=== PATIENT | female | born 1985 | race Caucasian/White ===

== ENCOUNTER 2024-01-04 07:16 | Outpatient (CLI) | payer OTHER, SELFPAY ==
--- NOTE | 2024-01-04 07:32 | US_ITS ---
WS: [id number] ULTRASOUND limited abdomen. HISTORY: UMBILICAL HERNIA COMPARISON: None available. TECHNIQUE: 2-D and color Doppler imaging is submitted. Ultrasound is performed along the superior umbilical region as directed by the patient. There is a so ft tissue mass which is hypoechoic with linear echogenic striations. This mass measures 3.2 x 2.1 x 3 .4 cm and is contiguous with the ventral abdominal wall. Consistent with hernia. US/US abdomen limited [id number] IMPRESSION: Supraumbilical omentum containing hernia.
== END 2024-01-04 07:17 | disposition home or self-care (01) ==
LOC: RAD 07:18
PROVIDERS: PCP Nurse Practitioner Family; Visit Provider Nurse Practitioner Family
DX: K42.9 Umbilical hernia without obstruction or gangrene (principal)
CPT/HCPCS: 76705

== ENCOUNTER 2024-03-01 09:38 | Day surgery (SDC) | payer OTHER, SELFPAY ==
[2024-03-01] VITALS (21 sets, daily range): BP systolic 105–168; BP diastolic 66–91; PULSE 63–88; RESP 12–26; TEMP 36.1–36.6; O2SAT 96–100; BMI 31.5
--- NOTE | 2024-03-01 10:01 | PM.HP ---
Providers/Chief Complaint Primary Care Provider: Lexii Agustin Chief Complaint: K42.0 History of Present Illness Georges Stephens is a 38 year old female Review of Systems General: Reports: 10 or more systems reviewed and unremarkable except in HPI and below Medications/Allergies Home Medications Medication Instructions Recorded Confirmed Last Taken Type fenofibrate 160 mg tablet 160 mg PO DAILY 11/13/23 02/29/24 02/29/24 History atorvastatin 40 mg tablet 40 mg PO DAILY #90 tabs 11/14/23 02/29/24 02/29/24 Rx lisinopril 40 mg tablet 40 mg PO DAILY #90 tabs 11/14/23 02/29/24 02/29/24 Rx buspirone 10 mg tablet 20 mg PO BID 12/03/23 03/01/24 03/01/24 08:30 History hydrochlorothiazide 25 mg tablet 25 mg PO DAILY 12/03/23 02/29/24 02/29/24 History amlodipine 5 mg tablet 5 mg PO BEDTIME #90 tabs 12/18/23 02/29/24 02/28/24 Rx varenicline 1 mg tablet (Chantix 1 mg PO BID 12 weeks #168 tabs 01/13/24 Unknown Rx Continuing Month Box) carvedilol 3.125 mg tablet See Rx Instructions .Route 02/26/24 03/01/24 03/01/24 08:30 Rx .COMPLEX #60 tabs Allergies Allergy/AdvReac Type Severity Reaction Status Date / Time amoxicillin [From Augmentin] Allergy Unknown Verified 01/08/24 11:25 clavulanic acid Allergy Unknown Verified 01/08/24 11:25 [From Augmentin] PFSH Acute PFSH: Social History Smoking and tobacco/nicotine status: current every day tobacco/nicotine user cigarettes Packs smoked per day: 1 Years cigarettes smoked: 25 [ Other cigarette details: Started at age 16] A&P Assessment and plan (1) Incarcerated umbilical hernia: Plan Laparoscopic incarcerated umbilical hernia repair with mesh The risks and benefits of the procedure, including but not limited to, bleeding, infection, mesh infection requiring mesh excision antibiotic therapy and repeat surgery, damage surrounding structures, conversion to an open procedure, scar, numbness, pain, and/or recurrence were explained to the patient. Patient is understanding of the risks and wishes to proceed. Attestations Medical Necessity Statement*: Home Coding Level of Care Code Acute Code for Chg Fwd Diagnoses Incarcerated umbilical hernia K42.0
[2024-03-01] MEDS: vancomycin 1,500 MG/300 ML PIGGYBACK 200 MG IV (10:14)
[2024-03-01] MEDS: sodium chloride 0.9% 1,000 ML 30 ML IV (10:14)
--- NOTE | 2024-03-01 10:21 | P.ANESASSM_ITS ---
Pre-Anesthetic Assessment Height/Weight: Height 1.78 m Weight 99.79 kg Temp Pulse Resp BP Pulse Ox O2 Del Method 97.8 F 85 18 105/68 97 Room Air 03/01/24 10:11 03/01/24 10:11 03/01/24 10:11 03/01/24 10:11 03/01/24 10:11 03/01/24 10:11 Operation Date: 03/01/24 11:15 Proposed Procedures p Laparoscopic Umbilical Hernia Repair with mesh 26975, K42.0(Not Applicable) - Mikey Jackson DO Familial anesthetic complications: None Was Beta Romero taken within 24 hours: N/A Was Clonidine taken within 24 hours: N/A Last intake: Intake Last Liquid Date 02/29/24 Last Liquid Time 23:30 Last Solid Date 02/29/24 Last Solid Time 23:00 Social Tobacco and No alcohol Exam alert, oriented x 3, clear to auscultation bilaterally and regular rate & rhythm Airway Mallampati: Class II Dentition: other (fillings have fallen out) CV/HEM Hypertension Metabolic Diabetes Mellitus and Hyperlipidemia Anesthetic Plan ASA status: 3 Anesthesia: General Risk of > 500 ml blood loss (7ml/kg in children): No Medications/Allergies Home Medications Medication Instructions Recorded Confirmed Last Taken Type fenofibrate 160 mg tablet 160 mg PO DAILY 11/13/23 02/29/24 02/29/24 History atorvastatin 40 mg tablet 40 mg PO DAILY #90 tabs 11/14/23 02/29/24 02/29/24 Rx lisinopril 40 mg tablet 40 mg PO DAILY #90 tabs 11/14/23 02/29/24 02/29/24 Rx buspirone 10 mg tablet 20 mg PO BID 12/03/23 03/01/24 03/01/24 08:30 History hydrochlorothiazide 25 mg tablet 25 mg PO DAILY 12/03/23 02/29/24 02/29/24 History amlodipine 5 mg tablet 5 mg PO BEDTIME #90 tabs 12/18/23 02/29/24 02/28/24 Rx varenicline 1 mg tablet (Chantix 1 mg PO BID 12 weeks #168 tabs 01/13/24 Unknown Rx Continuing Month Box) carvedilol 3.125 mg tablet See Rx Instructions .Route 02/26/24 03/01/24 03/01/24 08:30 Rx .COMPLEX #60 tabs Allergies Allergy/AdvReac Type Severity Reaction Status Date / Time amoxicillin [From Augmentin] Allergy Unknown Verified 01/08/24 11:25 clavulanic acid Allergy Unknown Verified 01/08/24 11:25 [From Augmentin] Current Medications Generic Name Dose Route Start Last Admin Trade Name Freq PRN Reason Stop Dose Admin Sodium Chloride 1,000 mls @ 30 mls/hr 03/01/24 09:45 03/01/24 10:14 Sodium Chloride 0.9% IV 03/02/24 09:44 30 mls/hr .Q24H MARJORIE Administration Vancomycin HCl 1,500 mg in 300 mls @ 200 mls/hr 03/01/24 09:42 03/01/24 10:14 Vancocin IV 03/01/24 11:11 200 mls/hr 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
--- NOTE | 2024-03-01 11:42 | PM.OP ---
Operative Report Date of procedure: March 01, 2024 Pre-op diagnosis: Umbilical hernia Post-op diagnosis: Umbilical hernia Additional ventral hernias x 2 Procedure done: Laparoscopic repair of ventral hernias x 3. 2 separate meshes were used Implants: 11 cm round Ventralight mesh 6 inch round Ventralight mesh Specimens removed/disposition: Hernia sacs Surgeon: Mikey Jackson DO Anesthesia: General and Local Estimated blood loss (mL): 5 Complications: None apparent Brief History: This is a very pleasant 38-year-old female presented my office with an umbilical hernia. Ultrasound showed a 3.2 cm umbilical hernia. The hernia was incarcerated. Laparoscopic repair with mesh was indicated. The risks and benefits explained and documented. Procedure: Patient was wheeled into the operative room and placed on the OR table in a supine position. Abdomen was inspected prepped and draped in usual sterile fashion. Time-out was performed and all present were in agreement. A 15 blade scalp was used to make a 5 millimeter incision left upper quadrant. A Veress needle was placed into the incision and intra-abdominal insufflation was brought to 15 millimeters of mercury. A 12 millimeter trocar was placed into the left lower quadrant. Omentum was adhered to the anterior abdominal wall this was taken down with LigaSure. An umbilical hernia and a ventral hernia superior to this were identified. During the dissection a third hernia was identified inferiorly. All 3 hernias measured less than 1.5 cm in diameter. The inferior hernia was from the other 2 hernias by 8 cm. There was omentum incarcerated into the 2 superior hernias which was taken out bluntly. The energy but device was then used to cut out the hernia sacs. An 11 cm round Ventralight mesh was placed over the inferior hernia. This was then tacked into place in a double crown fashion with a secure strap. A 6 inch ventral light mesh was placed into the abdomen and brought up in between the 2 superior hernias using an the Matthew-Juanpablo. The mesh was then tacked in place in a double crown fashion. The skeleton of the mesh was removed via the left lower quadrant. The hernia sac was then removed from the abdomen via the left lower quadrant. The left lower quadrant port site was closed with an 0 Vicryl suture in a Matthew-Juanpablo in a [id number] fashion. Incisions were closed with 4 O Vicryl in a subcuticular interrupted fashion. Skin glue was applied. A dressing that included cotton balls and a Tegaderm was placed over the umbilicus. Patient tolerated the procedure well.
[2024-03-01] MEDS: fentaNYL 50 mcg/mL INJ 2mL 100 MCG IVP (12:06)
--- NOTE | 2024-03-01 12:10 | PC.NURSE ---
1158- Per TAYLOR Wilson - des to give 100 Fentanyl IVP if pain does not decrease within 5-10 minutes
[2024-03-01] MEDS: fentaNYL 50 mcg/mL INJ 2mL IVP (12:33)
[2024-03-01] MEDS: ketorolac 30 mg/mL INJ IVP (12:40)
[2024-03-01] MEDS: LORazepam 2 mg/mL INJ 1 mL IVP (12:54)
--- NOTE | 2024-03-01 12:57 | PC.NURSE ---
1254 - pt pain has eased order to give 2mg Ativan IVP - given 0.5mg per this nurse - Dr Jackson notified of change in order -
--- NOTE | 2024-03-01 13:14 | PC.NURSE ---
1300 - pt resting with eyes closed resp even and unlabored - wasted additional 1.5mg of ativan X2 RN - This nurse and Shahla, RN - pharmacy notified as well
[2024-03-01] MEDS: oxyCODONE-APAP 10-325 mg Tablet 1 TAB PO (13:27)
--- NOTE | 2024-03-01 14:35 | ANE.PACU2 ---
Inpatient post-anesthesia follow up: Airway intact: Yes Vital signs: Temperature 97 F Pulse Rate 69 Respiratory Rate 18 Blood Pressure 134/84 Pulse Oximetry 97 Oxygen Delivery Me thod Room Air Oxygen Flow Rate 3 Fraction of Inspir ed Oxygen Hydration adequate: Yes Nausea and vomiting: No Pain level: 1 Mental status: Baseline
--- NOTE | 2024-03-01 14:52 | PC.NURSE ---
1235 - Dr Jackson in PACU - notified of pts continued increase in pain, medication that has previously been administered pt continues to c/o pain at 10 - new orders rec'd
== END 2024-03-01 14:35 | disposition home or self-care (01) ==
PROVIDERS: PCP Nurse Practitioner Family; Visit Provider Surgery
PROC: 0WQF4ZZ Repair Abdominal Wall, Percutaneous Endoscopic Approach (ICD-10-PCS; CPT 49592; principal; 2024-03-01 11:15)
DX: K42.9 Umbilical hernia without obstruction or gangrene (principal); I10 Essential (primary) hypertension; E11.9 Type 2 diabetes mellitus without complications; E78.5 Hyperlipidemia, unspecified; F17.210 Nicotine dependence, cigarettes, uncomplicated
CPT/HCPCS: 49592; 88302; C1781; J0131; J1100; J1171; J1200; J1885; J2060; J2405; J2704; J2710; J3010; J3370; J3490; J7030

== ENCOUNTER 2025-03-31 18:34 | Inpatient (IN) | payer MEDICAID, SELFPAY ==
--- NOTE | 2025-03-31 18:43 | CTR_ITS ---
PROCEDURE INFORMATION: Exam: CT Abdomen And Pelvis With Contrast Exam date and time: 03/31/2025 7:28 PM Age: 39 years old Clinical indication: Abdominal pain; Localized; Right; Prior surgery; Surgery date: 6+ months; Surgery type: Hernia repair; C/O RT sided abd pain. ; Additional info: 1d prog worsening rlq/ruq pain TECHNIQUE: Imaging protocol: Computed tomography of the abdomen and pelvis with contrast. Axial, coronal and sagittal reformatted images were created and reviewed. Radiation optimization: All CT scans at this facility use at least one of these dose optimization techniques: automated exposure control; mA and/or kV adjustment per patient size (includes targeted exams where dose is matched to clinical indication); or iterative reconstruction. Contrast material: OMNI 350; Contrast volume: 100 ml; Contrast route: INTRAVENOUS (IV); COMPARISON: US abdomen limited [id number] 01/04/2024 7:40 AM RADIATION DOSE METRICS: Total DLP (mGy-cm): 899.9 FINDINGS: Heart: Small pericardial effusion. Liver: Mild hepatomegaly. Gallbladder and biliary ducts: No radiodense gallstones. No biliary ductal dilatation. Pancreas: Unremarkable. Spleen: Mild splenomegaly. Adrenal glands: Normal. No mass. Kidneys and ureters: No mass. No radiodense calculi. No hydronephrosis. Stomach and bowel: Scattered colonic diverticula without evidence of diverticulitis. No obstruction. No bowel wall thickening. No pneumatosis. Appendix: Dilated, thickwalled, hyperemic retrocecal appendix with mild periappendiceal inflammatory change and small intraluminal appendicoliths. Subtle mucosal discontinuity, raising concern for early perforation. Intraperitoneal space: No free fluid. No organized fluid collection. No free air. Vasculature: Unremarkable. No aneurysm. Lymph nodes: No pathologically enlarged lymph nodes. Urinary bladder: Decompressed urinary bladder, which limits evaluation for wall thickening. Reproductive: Unremarkable. Bones/joints: No acute osseous abnormality. Mild degenerative changes. Soft tissues: Unremarkable. CT/CT abdomen pelvis w con* [id number] IMPRESSION: 1. Acute retrocecal appendicitis with findings suggestive of early perforation, as described above. No abscess, obstruction or free air. 2. Additional findings, as above.
[2025-03-31 18:45] VITALS: BP 178/91; PULSE 86; RESP 20; TEMP 36.5; O2SAT 99; BMI 31.5
[2025-03-31 18:52] VITALS: BP 164/81; PULSE 86; RESP 16; O2SAT 94
--- NOTE | 2025-03-31 18:57 | ECG_ITS ---
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 Measurements Intervals [place] Rate: 78 P: 66 ID: [id number] QRS: 91 QRSD: 101 T: 61 QT: 376 QTc: 431 Interpretive Statements SINUS RHYTHM BORDERLINE RIGHT AXIS DEVIATION [QRS AXIS > 90] Compared to ECG 11/13/2023 18:01:51 Sinus arrhythmia no longer present Myocardial infarct finding no longer present Electronically Signed On 04-01-2025 13:50:26 BUSSER by Terrell Bruce M.D. [email or web address]
--- NOTE | 2025-03-31 18:59 | W.ED.ABDPA2 ---
HPI - Abdominal Pain General: Chief Complaint: Abdominal Pain Stated Complaint: abd pain History of Present Illness: Patient is a 39-year-old female with a past medical history of depression, hypertension, HLD who presents with acute onset severe abdominal pain described as stabbing, seemingly starting in her right lower quadrant and radiating to the rest of her abdomen, describes it as a sharp burning sensation. She reports associated nausea and vomiting of bile after eating, but denies diarrhea, urinary symptoms, back pain, or fever. She is unsure of her last food intake and notes that her menstrual periods are irregular, and cannot recall her last period, her tubes are tied in her has a vasectomy. She has an abdominal history of hernia repair and tubal ligation. She is on tirzepatide for weight loss, did not take it this past week. Associated Symptoms: Reports nausea and vomiting Related Data Home Medications ?Medication ?Instructions ?Recorded ?Confirmed buspirone 10 mg tablet 30 mg PO BID 12/03/23 04/01/25 hydrochlorothiazide 25 mg tablet 25 mg PO DAILY 12/03/23 04/01/25 rosuvastatin 20 mg tablet 20 mg PO DAILY 01/11/25 04/01/25 losartan 25 mg tablet 25 mg PO DAILY 04/01/25 04/01/25 sertraline 100 mg tablet 100 mg PO DAILY 04/01/25 04/01/25 tirzepatide (weight loss) 7.5 7.5 mg SUBCUT Q7D 04/01/25 04/01/25 mg/0.5 mL subcutaneous pen injector (Zepbound) Previous Rx's ?Medication ?Instructions ?Recorded propranolol 10 mg tablet 10 mg PO BID #180 tabs 07/13/24 Allergies Allergy/AdvReac Type Severity Reaction Status Date / Time amoxicillin (From Augmentin) Allergy Unknown Verified 01/11/25 14:48 clavulanic acid (From Allergy Unknown Verified 01/11/25 14:48 Augmentin) Review of Systems General: Reports: 10 or more systems reviewed and unremarkable except in HPI and below Const: Reports: change in appetite GI: Reports: abdominal pain, nausea and vomiting PFSH ED PFSH: Surgical History History of incisional hernia repair Social History Smoking and tobacco/nicotine status: never used tobacco/nicotine Physical Exam Narrative: EXAM NARRATIVE: Patient in mild distress secondary to pain but overall well-appearing, nontoxic, afebrile, vital stable on arrival. Abdomen mildly distended, involuntary guarding, moderately tender on the right side, no true localizing signs, bowel sounds decreased but present, no CVA tenderness. Normal sinus rhythm, slightly delayed cap refill, 2+ pulses throughout. Breathing comfortably on room air, saturating well, able to speak in full sentences without getting short of breath, GCS 15. Course Vital Signs: Vital signs: Vital Signs Temperature 98.4 F 04/02/25 00:00 Pulse Rate 84 04/02/25 00:00 Respiratory Rate 16 04/02/25 00:58 Blood Pressure 120/65 04/02/25 00:00 Pulse Oximetry 98 04/02/25 00:00 Oxygen Delivery Me thod Room Air 04/02/25 00:00 Oxygen Flow Rate 10 04/01/25 10:51 MDM - Abdominal Pain Medical Decision Making -ddx: Appendicitis, ovarian cyst, cholelithiasis, SBO, intra-abdominal abscess, other viscus injury, enteritis, dehydration, electrolyte abnormality, cystitis, pyelonephritis, nephrolithiasis - Patient and mild distress secondary to pain but otherwise vital stable, well-appearing, with a day of progressing right lower quadrant radiating to the rest of her abdomen pain, previous abdominal surgeries of tubal ligation and hernia repair, no infectious-like symptoms, has had some nausea vomiting, no diarrhea, cannot recall her last bowel movement, is on an injectable for diabetes. Will evaluate with abdominal labs, CT abdomen pelvis, give symptom control with fluids, Zofran and morphine and reassess. - Patient with leukocytosis, only mild improvement of pain after morphine, CT scan with retrocecal appendicitis, possible early perforation, for this, additional pain medication given, patient started on Zosyn, surgery paged and admitted to their service for a probable OR in the morning, patient admitted to the hospital in stable condition, family at bedside and updated with plan of care. Lab Data 04/02/25 03:50 04/02/25 03:50 Labs/Radiology: Radiology Impressions Abdomen/Pelvis CT 03/31/25 18:43 IMPRESSION: 1. Acute retrocecal appendicitis with findings suggestive of early perforation, as described above. No abscess, obstruction or free air. 2. Additional findings, as above. ADDENDUM: 03/31/251957 ADDENDUM: THIS REPORT CONTAINS FINDINGS THAT MAY BE CRITICAL TO PATIENT CARE. The findings were verbally communicated via telephone conference with PAULA SALINAS at 7:57 PM EDUCATIONAL RESOURCE COORDINATOR on 03/31/2025. The findings were acknowledged and understood. Laboratory Results WBC 18.84 10^3/uL (3.29-11.43) H 03/31/25 18:42 RBC 5.31 10^6/uL (3.85-5.65) 03/31/25 18:42 Hgb 14.40 g/dL (11.27-16.99) 03/31/25 18:42 Hct 42.8 % (36-47) 03/31/25 18:42 MCV 80.6 fl (85-98) L 03/31/25 18:42 MCH 27.1 pg (27-33) 03/31/25 18:42 MCHC 33.6 g/dL (30-55) 03/31/25 18:42 RDW 13.7 % (12.1-15.1) 03/31/25 18:42 Plt Count 370 10^3/cmm (157-399) 03/31/25 18:42 MPV 13.2 fL (7.4-10.4) H 03/31/25 18:42 Neut % (Auto) 82.2 % 03/31/25 18:42 Lymph % (Auto) 12.3 % 03/31/25 18:42 [place] % (Auto) 4.3 % 03/31/25 18:42 Eos % (Auto) 0.5 % 03/31/25 18:42 Baso % (Auto) 0.2 % 03/31/25 18:42 Neut # (Auto) 15.50 10^3/uL (1.8-7.7) H 03/31/25 18:42 Lymph # (Auto) 2.3 10^3/uL (0.8-4.8) 03/31/25 18:42 [place] # (Auto) 0.8 10^3/uL (0.2-0.9) 03/31/25 18:42 Eos # (Auto) 0.1 10^3/uL (0.0-0.8) 03/31/25 18:42 Baso # (Auto) 0.0 10^3/uL (0.0-0.1) 03/31/25 18:42 Nucleated RBC % (auto) 0 % 03/31/25 18:42 Nucleated RBCs # 0.0 /100WBC 03/31/25 18:42 Sodium 136 mmol/L (136-145) 03/31/25 18:42 Potassium 4.0 mmol/L (3.5-5.1) 03/31/25 18:42 Chloride 95 mmol/L (98-107) L 03/31/25 18:42 Carbon Dioxide 23 mmol/L (22-29) 03/31/25 18:42 Anion Gap 22.0 (5-19) H 03/31/25 18:42 BUN 11 mg/dL (6-20) 03/31/25 18:42 Creatinine 0.5 mg/dL (0.5-0.9) 03/31/25 18:42 GFR Calculation 138.1 mL/min (90-130) H 03/31/25 18:42 Glucose 142 mg/dL (65-115) H 03/31/25 18:42 Calculated Osmolality 284 mOsm/kg (285-295) L 03/31/25 18:42 Lactic Acid 1.9 mmol/L (0.5-2.2) 03/31/25 18:42 Calcium 10.2 mg/dL (8.5-10.5) 03/31/25 18:42 Phosphorus 2.6 mg/dL (2.5-4.5) 03/31/25 18:42 Magnesium 1.8 mg/dL (1.7-2.3) 03/31/25 18:42 Total Bilirubin 0.7 mg/dL (0.15-1.2) 03/31/25 18:42 AST 16 U/L (0-32) 03/31/25 18:42 ALT 32 U/L (0-33) 03/31/25 18:42 Alkaline Phosphatase 120 U/L (35-105) H 03/31/25 18:42 C-React Prot High Sens 3.920 mg/dL (0.0-0.3) H 03/31/25 18:42 Total Protein 8.3 g/dL (6.6-8.7) 03/31/25 18:42 Albumin 5.0 g/dL (3.5-5.2) 03/31/25 18:42 Globulin 3.3 g/dL (1.3-4.6) 03/31/25 18:42 Lipase 19 U/L (13-60) 03/31/25 18:42 Urine Color [place] (Yellow) A 03/31/25 19:30 Urine Appearance Cloudy (CLEAR) A 03/31/25 19: Urine pH 8.0 (5-7) A 03/31/25 19:30 Ur Specific [place] 1.031 (1.005-1.030) H 03/31/25 19: Urine Protein 1+ (Negative) A 03/31/25 19: Urine Glucose (UA) Negative (Normal) 03/31/25 19: Urine Ketones 2+ (Negative) H 03/31/25 19:30 Urine Blood Negative (Negative) 03/31/25 19: Urine Nitrate Negative (Negative) 03/31/25 19: Urine Bilirubin Negative (Negative) 03/31/25 19:30 Urine Urobilinogen 1.0 mg/dL (Negative) 03/31/25 19:30 Ur Leukocyte Esterase Trace (Negative) A 03/31/25 19:30 Urine RBC 3-5 /hpf (0-2) 03/31/25 19:30 Urine WBC 0-5 /hpf (0-5) 03/31/25 19:30 Ur Squamous Epith Cells 11-20 /hpf (0-5) H 03/31/25 19:30 Amorphous Sediment Not Reportable 03/31/25 19:30 Urine Bacteria 1+ /hpf (NONE) H 03/31/25 19:30 Hyaline Casts 2.87 /lpf 03/31/25 19:30 All radiology interpretation(s) finalized by discharge Discharge Plan Discharge Patient Disposition: Admitted As Inpatient Admit Provider: Adiel Vizcaino Clinical Impression: Appendicitis, acute Condition: Stable Coding Level of Care Code ED Door To Door Sales Representative for Shana Lynn
[2025-03-31] MEDS: ondansetron 2 mg/ML SDV 2 mL 4 MG IVP (19:01)
[2025-03-31] MEDS: morphine 4 mg/mL SDV 1 mL IVP (19:01)
[2025-03-31 19:14] LABS: Hematocrit 42.8 % (36-47); Hemoglobin 14.40 g/dL (11.27-16.99); Mean Corpuscular HGB Conc 33.6 g/dL (30-55); Mean Corpuscular Hemoglobin 27.1 pg (27-33); Mean Corpuscular Volume 80.6 fl (85-98); Nucleated Red Blood Cells % 0 %; Platelet Count 370 10^3/cmm (157-399); Red Blood Count 5.31 10^6/uL (3.85-5.65); White Blood Count 18.84 10^3/uL (3.29-11.43)
[2025-03-31 19:29] LABS: Lactic Sepsis W/Reflex 1.9 mmol/L (0.5-2.2)
[2025-03-31] MEDS: iohexol 350 mg/mL 500 mL Btl (per mL) IV (19:30)
[2025-03-31 19:40] LABS: Alanine Aminotransferase 32 U/L (0-33); Albumin Level 5.0 g/dL (3.5-5.2); Alkaline Phosphatase 120 U/L (35-105); Anion Gap 22.0 (5-19); Aspartate Amino Transferase 16 U/L (0-32); Blood Urea Nitrogen 11 mg/dL (6-20); Calcium 10.2 mg/dL (8.5-10.5); Carbon Dioxide 23 mmol/L (22-29); Chloride 95 mmol/L (98-107); Globulin 3.3 g/dL (1.3-4.6); Glucose 142 mg/dL (65-115); Lipase 19 U/L (13-60); Magnesium 1.8 mg/dL (1.7-2.3); Osmolality Calculated 284 mOsm/kg (285-295); Potassium 4.0 mmol/L (3.5-5.1); Sodium 136 mmol/L (136-145); Total Protein 8.3 g/dL (6.6-8.7)
[2025-03-31 19:42] LABS: Glucose Urine UA Negative (Normal); Nitrate Urine Negative (Negative); Specific Gravity, Urine 1.031 (1.005-1.030)
[2025-03-31 19:47] LABS: Add Urine Microscopic? YES
[2025-03-31 19:52] LABS: CRP High Sensitivity Cardiac 3.920 mg/dL (0.0-0.3)
[2025-03-31] MEDS: HYDROmorphone 0.5 MG/0.5 ML INJ 1 MG IVP (20:25)
[2025-03-31] MEDS: metoclopramide 5 mg/mL SDV 2 mL 10 MG IVP (20:25)
[2025-03-31] MEDS: piperacillin-tazobactam 4.5 GM in sodium chloride 0.9% (plus) 50 ML IV (20:25)
[2025-03-31 22:10] VITALS: BP 158/86; PULSE 95; RESP 14; O2SAT 98
[2025-03-31 22:24] VITALS: BP 172/99; PULSE 100; RESP 17; TEMP 36.4; O2SAT 95
[2025-04-01] VITALS (17 sets, daily range): BP systolic 97–175; BP diastolic 51–92; PULSE 69–117; RESP 14–25; TEMP 36.4–38.6; O2SAT 92–100
[2025-04-01] MEDS: morphine 4 mg/mL SDV 1 mL 2 MG IVP ×2 (00:24→04:47)
[2025-04-01] MEDS: ondansetron 2 mg/ML SDV 2 mL 4 MG IVP (04:48)
--- NOTE | 2025-04-01 06:29 | PC.NURSE ---
Contacted Dr. Vizcaino in reference to Patient's BP and HR, most recently 178/75 and HR104. Received order for one time dose of Metoprolol IVP 5mg.
[2025-04-01] MEDS: metoprolol tartrate 1 mg/1 mL SDV 5 mL 5 MG IVP (06:39)
--- NOTE | 2025-04-01 08:48 | ANES.PREANE2 ---
Pre-Anesthetic Assessment Height/Weight: Height 1.78 m Weight 99.79 kg Temp Pulse Resp BP Pulse Ox O2 Del Method 100.6 F H 109 H 19 H 145/81 93 Room Air 04/01/25 08:14 04/01/25 08:14 04/01/25 08:14 04/01/25 08:14 04/01/25 08:14 04/01/25 08:14 Operation Date: 04/01/25 08:40 Proposed Procedures p Laparoscopic Appendectomy(Not Applicable) - Adiel Vizcaino DO Familial anesthetic complications: Grade III airway Was Beta Romero taken within 24 hours: N/A Was Clonidine taken within 24 hours: N/A Last intake: Intake Last Liquid Date 03/31/25 Last Liquid Time 19:00 Last Solid Date 03/31/25 Last Solid Time 09:00 Social Tobacco and No alcohol Exam alert, oriented x 3, clear to auscultation bilaterally and regular rate & rhythm CV/HEM Hypertension Metabolic Diabetes Mellitus, Hyperlipidemia and Morbid Obesity Anesthetic Plan ASA status: 3 Anesthesia: General Risk of > 500 ml blood loss (7ml/kg in children): No Medications/Allergies Home Medications ?Medication ?Instructions ?Recorded ?Confirmed ?Last Taken ?Type buspirone 10 mg tablet 30 mg PO BID 12/03/23 04/01/25 03/31/25 08:00 History hydrochlorothiazide 25 mg tablet 25 mg PO DAILY 12/03/23 04/01/25 03/31/25 08:00 History propranolol 10 mg tablet 10 mg PO BID #180 tabs 07/13/24 04/01/25 03/31/25 Rx varenicline tartrate 1 mg tablet See Rx Instructions .Route 08/23/24 04/01/25 03/31/25 08:00 Rx .COMPLEX #168 tabs rosuvastatin 20 mg tablet 20 mg PO DAILY 01/11/25 04/01/25 03/31/25 08:00 History tirzepatide (weight loss) 2.5 mg SUBCUT 01/11/25 01/11/25 Unknown History mg/0.5 mL subcutaneous pen injector (Zepbound) Allergies Allergy/AdvReac Type Severity Reaction Status Date / Time amoxicillin (From Augmentin) Allergy Unknown Verified 01/11/25 14:48 clavulanic acid (From Allergy Unknown Verified 01/11/25 14:48 Augmentin) Current Medications Generic Name Dose Route Start Last Admin Trade Name Freq PRN Reason Stop Dose Admin Dextrose/Lactated Ringer's 1,000 mls @ 100 mls/hr 04/01/25 00:15 04/01/25 00:31 Dextrose 5%-Lactated Ringers IV 100 mls/hr .Q10H MARJORIE Administration Morphine Sulfate 2 mg 04/01/25 00:04 04/01/25 04:47 Morphine 4 Mg/Ml Sdv 1 Ml IVP 2 mg Q4H PRN Administration SEVERE PAIN Ondansetron HCl 4 mg 04/01/25 00:07 04/01/25 04:48 Ondansetron 2 Mg/Ml Sdv 2 Ml IVP 4 mg Q6H PRN Administration NAUSEA AND VOMITING PFSH Anesthesia Surgical History History of incisional hernia repair Social History Smoking and tobacco/nicotine status: never used tobacco/nicotine Data Anesthesia 03/31/25 18:42 03/31/25 18:42 Short CBC 03/31/25 Range/Units 18:42 WBC 18.84 H (3.29-11.43) 10^3/uL Hgb 14.40 (11.27-16.99) g/dL Hct 42.8 (36-47) % MCV 80.6 L (85-98) fl Plt Count 370 (157-399) 10^3/cmm Neut % (Auto) 82.2 % Neut # (Auto) 15.50 H (1.8-7.7) 10^3/uL BMP 03/31/25 18:42 Sodium 136 Potassium 4.0 Chloride 95 L Carbon Dioxide 23 BUN 11 Creatinine 0.5 Glucose 142 H Calcium 10.2 Liver Function 03/31/25 Range/Units 18:42 Total Bilirubin 0.7 (0.15-1.2) mg/dL AST 16 (0-32) U/L ALT 32 (0-33) U/L Alkaline Phosphatase 120 H (35-105) U/L Albumin 5.0 (3.5-5.2) g/dL Urine 03/31/25 Range/Units 19:30 Urine Color [place] A (Yellow) Urine Appearance Cloudy A (CLEAR) Urine pH 8.0 A (5-7) Ur Specific [place] 1.031 H (1.005-1.030) Urine Protein 1+ A (Negative) Urine Glucose (UA) Negative (Normal) Urine Ketones 2+ H (Negative) Urine Nitrate Negative (Negative) Urine Bilirubin Negative (Negative) Ur Leukocyte Esterase Trace A (Negative) Urine RBC 3-5 (0-2) /hpf Urine WBC 0-5 (0-5) /hpf Coags 03/31/25 18:42 C-React Prot High Sens 3.920 H Cardiac Studies: Echocardiogram 11/13/23
--- NOTE | 2025-04-01 09:03 | P.HP_ITS ---
Providers/Chief Complaint 2 Admitting Physician: Adiel Vizcaino DO Primary Care Provider: Lexii Agustin Chief Complaint: abd pain History of Present Illness Georges Stephens is a 39 year old female with chief complaint of abdominal pain that started yesterday morning. The pain progressed and moved from the local area to the right lower quadrant and now diffuse. She denies any fevers or chills. She presented to the emergency department last night and got a CT scan which showed acute appendicitis without any obvious abscess formation she does have a past surgical history significant for incisional hernia repair that was done laparoscopically several years ago. She has been febrile with a Tmax of 100.6 and slightly tachycardic throughout this process. She received IV antibiotics in the ER and has been n.p.o. since arrival to the hospital. She is a 1 pack/day smoker and states that she has had some nausea associate with the pain but denies any vomiting. Normal bowel movements with no blood. She denies any recent weight loss or adenopathy. No other complaints this time. She denies any urinary complaints. Review of Systems 2 Narrative: See HPI. All systems reviewed and negative except as noted in the HPI. Medications/Allergies Home Medications ?Medication ?Instructions ?Recorded ?Confirmed ?Last Taken ?Type buspirone 10 mg tablet 30 mg PO BID 12/03/2303/31/25 08:00 History hydrochlorothiazide 25 mg tablet 25 mg PO DAILY 04/01/25 03/31/25 08:00 History propranolol 10 mg tablet 10 mg PO BID #180 tabs 07/1304/01/25 03/31/25 Rx varenicline tartrate 1 mg tablet See Rx Instructions . Route 08/23/24 04/01/25 03/31/25 08:00 Rx .COMPLEX #168 tabs rosuvastatin 20 mg tablet 20 mg PO DAILY 01/11/2503/1203/31/25 08:00 History tirzepatide (weight loss) 2.5 mg SUBCUT 01/11/2501/11 Unknown History mg/0.5 mL subcutaneous pen injector (Zepbound) Allergies Allergy/AdvReac Type Severity Reaction Status Date / Time amoxicillin (From Augmentin) Allergy Unknown Verified 01/11/25 14:48 clavulanic acid (From Allergy Unknown Verified 01/11/25 14:48 Augmentin) PFSH Acute 2 PFSH: Surgical History History of incisional hernia repair Social History Smoking and tobacco/nicotine status: never used tobacco/nicotine Vitals/I&O/Wt Last Vital Signs Temp 100.6 F H 04/01/25 08:14 Pulse 109 H 04/01/25 08:14 Resp 19 H 04/01/25 08:14 BP 145/81 04/01/25 08:14 Pulse Ox 93 04/01/25 08:14 O2 Del Method Room Air 04/01/25 08:14 03/31/25 04/01/25 04/01/25 22:59 06:59 14:59 Intake Total 1050 / 1050 Balance 1050 / 1050 Weight last 48 hrs Weight 220 lb Weight 215 lb 7 oz Weight 220 lb Physical Exam 2 Narrative: General alert and oriented x 3, in some distress in the PACU area this morning. Cardiovascular tachycardic with regular rhythm positive S1-S2 heart sounds Lungs clear to auscultation bilaterally in upper quadrants with mild crackles at the bases. Abdomen soft mildly distended with guarding in the right lower quadrant, positive McBurney's point. Negative rebound or rigidity. No masses or fluid shifts palpated. No organomegaly palpated. Extremities distal pulses intact bilaterally moves all extremities normally and equally muscle strength 5+ out of 5 bilaterally Neuro?intact Data 03/31/25 18:42 03/31/25 18:42 A&P Assessment and plan 1. Acute appendicitis with generalized peritonitis: Will plan 4 OR today. She received IV antibiotics and is n.p.o. currently. Discussed both surgical and nonsurgical options with the patient and her family and given her current exam and findings I think surgery is needed and we discussed both laparoscopic and open possibilities given her presentation. Explained that given her leukocytosis may be an increase chance of developing a postoperative abscess for she will need to be on antibiotics for 7 to 10 days minimum after surgery. IV fluid resuscitation and Zosyn every 6 have been ordered. Patient agrees with plan and we will proceed with appendectomy as discussed. 2. History of incisional hernia repair: 3. Smokin. Hypertension: PDMP PDMP Reviewed: Not Reviewed Attestations 2 Medical Necessity Statement*: Patient admitted for appendectomy and IV antibiotics Coding Level of Care Code Acute Code for [facility] Fwd Diagnoses Acute appendicitis with generalized peritonitis K35.209 History of incisional hernia repair Z98.890; Z87.19 Smoking F17.200 Hypertension I10
[2025-04-01] MEDS: ceFAZolin 1,000 mg SDV 2000 MG IVP (09:12)
[2025-04-01] MEDS: BUPivacaine-epi 0.5% 10 ML INJ 30 ML XX (09:28)
--- NOTE | 2025-04-01 10:55 | ANE.PACU2 ---
Inpatient post-anesthesia follow up: Airway intact: Yes Vital signs: Temperature 97.6 F Pulse Rate 70 Respiratory Rate 20 Blood Pressure 113/69 Pulse Oximetry 95 Oxygen Delivery Me thod Room Air Oxygen Flow Rate 10 Fraction of Inspir ed Oxygen Hydration adequate: Yes Nausea and vomiting: No Pain level: 1 Mental status: Baseline
[2025-04-01] MEDS: piperacillin-tazobactam 3.375 GM in sodium chloride 0.9% (plus) 50 ML IV ×2 (11:42→18:04)
--- NOTE | 2025-04-01 12:15 | PC.CHAP ---
Pastoral Care Encounter/Spiritual Assessment Type of Contact [] Declined sister superior visit [] Patient/Family/Request visit [] Outpatient visit [] Follow-up visit [] Physician referral [] Code/Alert [] Routine visit [] Staff referral [] Actively dying [x] Patient sleeping [] Family support [] [] Out of room [] Palliative care [] [] Receiving care in room [] Pre-surgical visit [] Trauma [] Long length of stay [] ICU visit [] Other: Relational/Emotional Strength [] Patient feels connected with others/family/visitors/staff [] Distress [] Loneliness/isolation [] Abandonment Spirituality of Patient [] Person of Doreen [] Attends Orthodox of their Doreen [] Believes in Prayer [] Reads Bible or Restorationist materials [] There are Spiritual issues to be addressed Outside Production Inspector Interventions [] Prayer [] Active listening [] Non-anxious presence [] Spiritual/emotional support [] Crisis/trauma care [] Spiritual counseling [] Bereavement support [] Provided bereavement packet [] Provided Bible/devotional materials [] Provided toy/stuffed animal, coloring book to patient or family member [] Provided Communion [] Anointing/[place] [] Salvation [] Completed spiritual assessment [] Other: Impact on Illness or Injury [] Angry [] Fearful [] Anxious [] Often cries [] Exhaustion [] Unable to work [] Unable to attend gnosticism [] Unable to walk/stand [] Unable to read [] Unable to drive [] Unable to eat/drink [] Unable to sleep [] Unable to be with family [] Patient intubated [] Other: Summary Time spent with patient
[2025-04-01] MEDS: HYDROcodone-acetaminophen 5-325 mg Tablet 1 TAB PO ×2 (14:42→20:38)
--- NOTE | 2025-04-01 16:54 | PM.OP ---
Operative Report Date of procedure: April 01, 2025 Pre-op diagnosis: Acute appendicitis Post-op diagnosis: Same Procedure done: Laparoscopic appendectomy Specimens removed/disposition: Appendix Surgeon: Adiel Vizcaino DO Machine Operator Picker: None Estimated blood loss: 20 mL Complications: None Procedure: Patient was brought back to the operating room placed on the operating table in supine position. The abdomen was prepped and draped in usual sterile fashion and a timeout was done verifying correct patient procedure site positioning implants and equipment needed prior to being the procedure. We started the procedure using a 5 mm Optiview trocar and 0 degree scope and the abdomen was entered under direct visualization after making an incision in the left upper quadrant just medial to the tip the 11th rib. This was done secondary to her previous abdominal mesh placement femoral hernia repair. Once the abdomen was entered no injury was noted from the initial insertion site. The abdomen was then insufflated to 1250 mmHg the patient tolerated well. 3 more ports were then placed 112 mm port at the umbilicus 112 mm port in the left lower quadrant and one 5 mm suprapubic trocar was placed under direct visualization with no injuries noted on insertion of the trocars. Using blunt dissection and electrocautery with the LigaSure device adhesions that were present on the anterior abdominal wall mesh were taken down between the small bowel and omentum. Once this was done camera switched to a 1030 scope and placed to the periumbilical trocar. Once this was done we visualized the right lower quadrant and she was found to have inflammation surrounding the cecum and a very inflamed appendix which was found to be retrocecal in nature tracking up the right paracolic gutter. The base of the appendix was identified and using a linear PAOLO stapler the base of the appendix was transected. Once this was done a grasper was used to grasp the base of the stable portion of the appendix and dissect out the retrocecal portion of the appendix which was acutely inflamed with a possible small perforation at the tip that was visualized once this was fully dissected. The colon was protected throughout this with no injuries. Another 45 mm blue load and staple was used to transect the mesentery and 1 small clip was used to control bleeding from the appendiceal artery which was done and hemostasis was achieved and maintained throughout the procedure. Once the appendix was fully dissected and transected and endoscopic retrieval bag was placed in the left lower quadrant and the specimen was removed and sent to pathology for further evaluation. Using the suction logistics analytics manager the area was irrigated as well as the pelvis and no abscess or fluid was noted in either cavity. The patient was then placed in standard 5 position again and the fascia of the 12 mm left lower quadrant port site was closed using 0 Vicryl suture in a transfascial fashion using Matthew Whaley needle passer. At this time the pneumoperitoneum was released and all trocars were removed under direct visualization and the skin incisions were closed using inverted erupted 4 oh Dermabond and Dermabond patient tolerated procedure well and was taken liposuctioning care unit in stable condition.
[2025-04-02] VITALS: BP 120/65; PULSE 84; RESP 18; TEMP 36.9; O2SAT 98
[2025-04-02 00:58] VITALS: RESP 16
[2025-04-02] MEDS: morphine 4 mg/mL SDV 1 mL 2 MG IVP (00:58)
[2025-04-02] MEDS: HYDROcodone-acetaminophen 5-325 mg Tablet 1 TAB PO ×2 (02:44→08:45)
[2025-04-02] MEDS: piperacillin-tazobactam 3.375 GM in sodium chloride 0.9% (plus) 50 ML IV ×2 (02:45→11:25)
[2025-04-02 04:00] VITALS: BP 132/81; PULSE 80; RESP 18; TEMP 36.7; O2SAT 97
[2025-04-02 04:31] LABS: Hematocrit 32.4 % (36-47); Hemoglobin 10.10 g/dL (11.27-16.99); Mean Corpuscular HGB Conc 31.2 g/dL (30-55); Mean Corpuscular Hemoglobin 27.1 pg (27-33); Mean Corpuscular Volume 86.9 fl (85-98); Nucleated Red Blood Cells % 0 %; Platelet Count 175 10^3/cmm (157-399); Red Blood Count 3.73 10^6/uL (3.85-5.65); White Blood Count 7.44 10^3/uL (3.29-11.43)
[2025-04-02] MEDS: LOSARTAN 25 MG TABLET PO (04:32)
[2025-04-02 04:52] LABS: Anion Gap 12.0 (5-19); Blood Urea Nitrogen 9 mg/dL (6-20); Calcium 8.0 mg/dL (8.5-10.5); Carbon Dioxide 28 mmol/L (22-29); Chloride 99 mmol/L (98-107); Glucose 127 mg/dL (65-115); Osmolality Calculated 282 mOsm/kg (285-295); Potassium 3.0 mmol/L (3.5-5.1); Sodium 136 mmol/L (136-145)
[2025-04-02 06:00] VITALS: BMI 31.5
[2025-04-02 07:35] VITALS: BP 113/69; PULSE 70; RESP 20; TEMP 36.4; O2SAT 95
[2025-04-02 11:40] VITALS: BP 124/73; PULSE 78; RESP 18; TEMP 36.4; O2SAT 96
--- NOTE | 2025-04-02 13:13 | P.PN_ITS ---
Subjective 2 Subjective: Update 1 from laparoscopic appendectomy. Overall did well overnight pain is well-controlled. Ambulating on her own voiding on her own. Tolerating diet. Denies any shortness of breath or nausea vomiting. Positive bowel movement and flatus. No acute events overnight Vitals/I&O/Wt Last Vital Signs Temp 97.6 F 04/02/25 11:40 Pulse 78 04/02/25 11:40 Resp 18 04/02/25 11:40 BP 124/73 04/02/25 11:40 Pulse Ox 96 04/02/25 11:40 O2 Del Method Room Air 04/02/25 11:40 O2 Flow Rate 10 04/01/25 10:51 04/01/25 04/02/25 04/02/25 22:59 06:59 14:59 Intake Total 1358.333 / 2458.333 1081.667 / 3540.000 480 / 480 Output Total 750 / 765 1400 / 2165 Balance 608.333 / 1693.333 -318.333 / 1375.000 480 / 480 Weight last 48 hrs Weight 220 lb Weight 220 lb Weight 215 lb 7 oz Weight 220 lb Physical Exam 2 Narrative: General alert and oriented x 3, in some distress in the PACU area this morning. Cardiovascular tachycardic with regular rhythm positive S1-S2 heart sounds Lungs clear to auscultation bilaterally in upper quadrants with mild crackles at the bases. Abdomen soft mildly distended. Dry and intact with mild and appropriate tenderness palpation at incision sites. Negative rebound or rigidity. No masses or fluid shifts palpated. No organomegaly palpated. Extremities distal pulses intact bilaterally moves all extremities normally and equally muscle strength 5+ out of 5 bilaterally Neuro?intact Urinary Catheter Management: Straight Latex: Cath Placed During This Visit: no Data 04/02/25 03:50 04/02/25 03:50 A&P Assessment and plan 1. Acute appendicitis with generalized peritonitis: Doing well today. Hypokalemia replacement with dietary changes. Leukocytosis resolved. Will DC IV antibiotics and discharged home on p.o. antibiotics for total of 10 days. She will be on Augmentin for total of 10 days. Tolerating diet. Okay to discharge home and follow-up in 2 weeks with the general surgery clinic. 2. History of incisional hernia repair: 3. Smokin. Hypertension: PDMP PDMP Reviewed: Not Reviewed Attestations 2 Medical Necessity Statement*: Discharge home today Coding Level of Care Code Acute Code for [facility] Fwd Diagnoses Acute appendicitis with generalized peritonitis K35.209 History of incisional hernia repair Z98.890; Z87.19 Smoking F17.200 Hypertension I10
--- NOTE | 2025-04-02 13:16 | P.DS_ITS ---
Discharge Providers Date of Admission: 03/31/25 21:16 Date of Discharge: April 02, 2025 Attending Provider at Admission: Adiel Vizcaino DO Attending Provider at Discharge: Adiel Vizcaino DO Primary Care Provider: Lexii Agustin Diagnoses at Discharge Discharge Diagnosis 1. Acute appendicitis with generalized peritonitis: 2. History of incisional hernia repair: 3. Smokin. Primary hypertension: Reason for Visit Reason for Visit: abd pain Physical Exam Urinary Catheter Management: Straight Latex: Cath Placed During This Visit: no Discharge Data Studies Completed and Pending Completed Studies During Hospitalization Category Date Time Status CT abdomen pelvis w con* [id number] Stat Cat Scan 03/31/25 18:43 Completed Pending at discharge Category Date Time Status Pathology: Surgical [PTH] Routine Pth 04/01/25 09:57 Ordered Radiology Impressions Abdomen/Pelvis CT 03/31/25 18:43 IMPRESSION: 1. Acute retrocecal appendicitis with findings suggestive of early perforation, as described above. No abscess, obstruction or free air. 2. Additional findings, as above. ADDENDUM: 03/31/251957 ADDENDUM: THIS REPORT CONTAINS FINDINGS THAT MAY BE CRITICAL TO PATIENT CARE. The findings were verbally communicated via telephone conference with PAULA SALINAS at 7:57 PM [employer] on 03/31/2025. The findings were acknowledged and understood. Laboratory Results WBC 7.44 10^3/uL (3.29-11.43) 04/02/25 03:50 RBC 3.73 10^6/uL (3.85-5.65) L 04/02/25 03:50 Hgb 10.10 g/dL (11.27-16.99) L 04/02/25 03:50 Hct 32.4 % (36-47) L 04/02/25 03:50 MCV 86.9 fl (85-98) 04/02/25 03:50 MCH 27.1 pg (27-33) 04/02/25 03:50 MCHC 31.2 g/dL (30-55) 04/02/25 03:50 RDW 14.3 % (12.1-15.1) 04/02/25 03:50 Plt Count 175 10^3/cmm (157-399) 04/02/25 03:50 MPV 12.6 fL (7.4-10.4) H 04/02/25 03:50 Neut % (Auto) 71.7 % 04/02/25 03:50 Lymph % (Auto) 19.6 % 04/02/25 03:50 [place] % (Auto) 7.5 % 04/02/25 03:50 Eos % (Auto) 0.5 % 04/02/25 03:50 Baso % (Auto) 0.3 % 04/02/25 03:50 Neut # (Auto) 5.33 10^3/uL (1.8-7.7) 04/02/25 03:50 Lymph # (Auto) 1.5 10^3/uL (0.8-4.8) 04/02/25 03:50 [place] # (Auto) 0.6 10^3/uL (0.2-0.9) 04/02/25 03:50 Eos # (Auto) 0.0 10^3/uL (0.0-0.8) 04/02/25 03:50 Baso # (Auto) 0.0 10^3/uL (0.0-0.1) 04/02/25 03:50 Nucleated RBC % (auto) 0 % 04/02/25 03:50 Nucleated RBCs # 0.0 /100WBC 04/02/25 03:50 Sodium 136 mmol/L (136-145) 04/02/25 03:50 Potassium 3.0 mmol/L (3.5-5.1) L 04/02/25 03:50 Chloride 99 mmol/L (98-107) 04/02/25 03:50 Carbon Dioxide 28 mmol/L (22-29) 04/02/25 03:50 Anion Gap 12.0 (5-19) 04/02/25 03:50 BUN 9 mg/dL (6-20) 04/02/25 03:50 Creatinine 0.4 mg/dL (0.5-0.9) L 04/02/25 03:50 GFR Calculation 178.6 mL/min (90-130) H 04/02/25 03:50 Glucose 127 mg/dL (65-115) H 04/02/25 03:50 POC Glucose 138 mg/dL (70-110) H 04/01/25 08:23 Calculated Osmolality 282 mOsm/kg (285-295) L 04/02/25 03:50 Lactic Acid 1.9 mmol/L (0.5-2.2) 03/31/25 18:42 Calcium 8.0 mg/dL (8.5-10.5) L 04/02/25 03:50 Phosphorus 2.6 mg/dL (2.5-4.5) 03/31/25 18:42 Magnesium 1.8 mg/dL (1.7-2.3) 03/31/25 18:42 Total Bilirubin 0.7 mg/dL (0.15-1.2) 03/31/25 18:42 AST 16 U/L (0-32) 03/31/25 18:42 ALT 32 U/L (0-33) 03/31/25 18:42 Alkaline Phosphatase 120 U/L (35-105) H 03/31/25 18:42 C-React Prot High Sens 3.920 mg/dL (0.0-0.3) H 03/31/25 18:42 Total Protein 8.3 g/dL (6.6-8.7) 03/31/25 18:42 Albumin 5.0 g/dL (3.5-5.2) 03/31/25 18:42 Globulin 3.3 g/dL (1.3-4.6) 03/31/25 18:42 Lipase 19 U/L (13-60) 03/31/25 18:42 Urine Color [place] (Yellow) A 03/31/25 19: Urine Appearance Cloudy (CLEAR) A 03/31/25 19: Urine pH 8.0 (5-7) A 03/31/25 19: Ur Specific [place] 1.031 (1.005-1.030) H 03/31/25 19:30 Urine Protein 1+ (Negative) A 03/31/25 19: Urine Glucose (UA) Negative (Normal) 03/31/25 19: Urine Ketones 2+ (Negative) H 03/31/25 19: Urine Blood Negative (Negative) 03/31/25 19: Urine Nitrate Negative (Negative) 03/31/25 19: Urine Bilirubin Negative (Negative) 03/31/25 19: Urine Urobilinogen 1.0 mg/dL (Negative) 03/31/25 19: Ur Leukocyte Esterase Trace (Negative) A 03/31/25 19:30 Urine RBC 3-5 /hpf (0-2) 03/31/25 19:30 Urine WBC 0-5 /hpf (0-5) 03/31/25 19:30 Ur Squamous Epith Cells 11-20 /hpf (0-5) H 03/31/25 19:30 Amorphous Sediment Not Reportable 03/31/25 19:30 Urine Bacteria 1+ /hpf (NONE) H 03/31/25 19:30 Hyaline Casts 2.87 /lpf 03/31/25 19:30 Vitals Last Vital Signs Temp 97.6 F 04/02/25 11:40 Pulse 78 04/02/25 11:40 Resp 18 04/02/25 11:40 BP 124/73 04/02/25 11:40 Pulse Ox 96 04/02/25 11:40 O2 Del Method Room Air 04/02/25 11:40 O2 Flow Rate 10 04/01/25 10:51 Discharge Plan Discharge Patient Disposition: Home Condition: Stable Prescriptions: No Action hydrochlorothiazide 25 mg tablet 25 mg PO DAILY rosuvastatin 20 mg tablet 20 mg PO DAILY propranolol 10 mg tablet 10 mg PO BID Qty: 180 3RF buspirone 10 mg tablet 30 mg PO BID sertraline 100 mg tablet 100 mg PO DAILY losartan 25 mg tablet 25 mg PO DAILY Zepbound 7.5 mg/0.5 mL pen injector 7.5 mg SUBCUT Q7D Referrals: Lexii Agustin FNP [Primary Care Provider, Nurse Practitioner] Patient Instructions: Abdominal Pain (ED), Opioid Safety, Patient Portal & Estephania Instructions, Acute Wound Care (DC), Post Anesthesia Care Coding Level of Care Code Acute Code for [facility] Fwd Diagnoses Acute appendicitis with generalized peritonitis K35.209 History of incisional hernia repair Z98.890; Z87.19 Smoking F17.200 Primary hypertension I10 Hypertension type: primary hypertension
--- NOTE | 2025-04-02 13:35 | P.DS_ITS ---
Discharge Providers Date of Admission: 03/31/25 21:16 Date of Discharge: April 02, 2025 Attending Provider at Admission: Adiel Vizcaino DO Attending Provider at Discharge: Adiel Vizcaino DO Consults: NA Primary Care Provider: Lexii Agustin Diagnoses at Discharge Discharge Diagnosis 1. Acute appendicitis with generalized peritonitis: Details from hospital stay: She presented to hospital with acute Penta situs and underwent laparoscopic appendectomy. She did well postoperatively for a complete record of her hospital stay please see the progress notes. She tolerated diet and was discharged home on postop day 1 with pain medicine and p.o. antibiotics. 2. History of incisional hernia repair: 3. Smokin. Primary hypertension: Reason for Visit Reason for Visit: abd pain Hospital Course Hospital Course She presented to the emergency room and underwent laparoscopic wound ectomy uneventfully. She did well postoperatively and was discharged home on postop day 1 Physical Exam Narrative: General alert and oriented x 3, in some distress in the PACU area this morning. Cardiovascular tachycardic with regular rhythm positive S1-S2 heart sounds Lungs clear to auscultation bilaterally in upper quadrants with mild crackles at the bases. Abdomen soft mildly distended. Dry and intact with mild and appropriate tenderness palpation at incision sites. Negative rebound or rigidity. No masses or fluid shifts palpated. No organomegaly palpated. Extremities distal pulses intact bilaterally moves all extremities normally and equally muscle strength 5+ out of 5 bilaterally Neuro?intact Urinary Catheter Management: Straight Latex: Cath Placed During This Visit: no Discharge Data Studies Completed and Pending Completed Studies During Hospitalization Category Date Time Status CT abdomen pelvis w con* [id number] Stat Cat Scan 03/31/25 18:43 Completed Pending at discharge Category Date Time Status Pathology: Surgical [PTH] Routine Pth 04/01/25 09:57 Ordered Radiology Impressions Abdomen/Pelvis CT 03/31/25 18:43 IMPRESSION: 1. Acute retrocecal appendicitis with findings suggestive of early perforation, as described above. No abscess, obstruction or free air. 2. Additional findings, as above. ADDENDUM: 03/31/251957 ADDENDUM: THIS REPORT CONTAINS FINDINGS THAT MAY BE CRITICAL TO PATIENT CARE. The findings were verbally communicated via telephone conference with PAULA SALINAS at 7:57 PM GARAGE SUPERVISOR on 03/31/2025. The findings were acknowledged and understood. Laboratory Results WBC 7.44 10^3/uL (3.29-11.43) 04/02/25 03:50 RBC 3.73 10^6/uL (3.85-5.65) L 04/02/25 03:50 Hgb 10.10 g/dL (11.27-16.99) L 04/02/25 03:50 Hct 32.4 % (36-47) L 04/02/25 03:50 MCV 86.9 fl (85-98) 04/02/25 03:50 MCH 27.1 pg (27-33) 04/02/25 03:50 MCHC 31.2 g/dL (30-55) 04/02/25 03:50 RDW 14.3 % (12.1-15.1) 04/02/25 03:50 Plt Count 175 10^3/cmm (157-399) 04/02/25 03:50 MPV 12.6 fL (7.4-10.4) H 04/02/25 03:50 Neut % (Auto) 71.7 % 04/02/25 03:50 Lymph % (Auto) 19.6 % 04/02/25 03:50 [place] % (Auto) 7.5 % 04/02/25 03:50 Eos % (Auto) 0.5 % 04/02/25 03:50 Baso % (Auto) 0.3 % 04/02/25 03:50 Neut # (Auto) 5.33 10^3/uL (1.8-7.7) 04/02/25 03:50 Lymph # (Auto) 1.5 10^3/uL (0.8-4.8) 04/02/25 03:50 [place] # (Auto) 0.6 10^3/uL (0.2-0.9) 04/02/25 03:50 Eos # (Auto) 0.0 10^3/uL (0.0-0.8) 04/02/25 03:50 Baso # (Auto) 0.0 10^3/uL (0.0-0.1) 04/02/25 03:50 Nucleated RBC % (auto) 0 % 04/02/25 03:50 Nucleated RBCs # 0.0 /100WBC 04/02/25 03:50 Sodium 136 mmol/L (136-145) 04/02/25 03:50 Potassium 3.0 mmol/L (3.5-5.1) L 04/02/25 03:50 Chloride 99 mmol/L (98-107) 04/02/25 03:50 Carbon Dioxide 28 mmol/L (22-29) 04/02/25 03:50 Anion Gap 12.0 (5-19) 04/02/25 03:50 BUN 9 mg/dL (6-20) 04/02/25 03:50 Creatinine 0.4 mg/dL (0.5-0.9) L 04/02/25 03:50 GFR Calculation 178.6 mL/min (90-130) H 04/02/25 03:50 Glucose 127 mg/dL (65-115) H 04/02/25 03:50 POC Glucose 138 mg/dL (70-110) H 04/01/25 08:23 Calculated Osmolality 282 mOsm/kg (285-295) L 04/02/25 03:50 Lactic Acid 1.9 mmol/L (0.5-2.2) 03/31/25 18:42 Calcium 8.0 mg/dL (8.5-10.5) L 04/02/25 03:50 Phosphorus 2.6 mg/dL (2.5-4.5) 03/31/25 18:42 Magnesium 1.8 mg/dL (1.7-2.3) 03/31/25 18:42 Total Bilirubin 0.7 mg/dL (0.15-1.2) 03/31/25 18:42 AST 16 U/L (0-32) 03/31/25 18:42 ALT 32 U/L (0-33) 03/31/25 18:42 Alkaline Phosphatase 120 U/L (35-105) H 03/31/25 18:42 C-React Prot High Sens 3.920 mg/dL (0.0-0.3) H 03/31/25 18:42 Total Protein 8.3 g/dL (6.6-8.7) 03/31/25 18:42 Albumin 5.0 g/dL (3.5-5.2) 03/31/25 18:42 Globulin 3.3 g/dL (1.3-4.6) 03/31/25 18:42 Lipase 19 U/L (13-60) 03/31/25 18:42 Urine Color [place] (Yellow) A 03/31/25 19:30 Urine Appearance Cloudy (CLEAR) A 03/31/25 19:30 Urine pH 8.0 (5-7) A 03/31/25 19:30 Ur Specific [place] 1.031 (1.005-1.030) H 03/31/25 19:30 Urine Protein 1+ (Negative) A 03/31/25 19:30 Urine Glucose (UA) Negative (Normal) 03/31/25 19:30 Urine Ketones 2+ (Negative) H 03/31/25 19:30 Urine Blood Negative (Negative) 03/31/25 19: Urine Nitrate Negative (Negative) 03/31/25 19: Urine Bilirubin Negative (Negative) 03/31/25 19: Urine Urobilinogen 1.0 mg/dL (Negative) 03/31/25 19:30 Ur Leukocyte Esterase Trace (Negative) A 03/31/25 19:30 Urine RBC 3-5 /hpf (0-2) 03/31/25 19:30 Urine WBC 0-5 /hpf (0-5) 03/31/25 19:30 Ur Squamous Epith Cells 11-20 /hpf (0-5) H 03/31/25 19:30 Amorphous Sediment Not Reportable 03/31/25 19:30 Urine Bacteria 1+ /hpf (NONE) H 03/31/25 19:30 Hyaline Casts 2.87 /lpf 03/31/25 19:30 Vitals Last Vital Signs Temp 97.6 F 04/02/25 11:40 Pulse 78 04/02/25 11:40 Resp 18 04/02/25 11:40 BP 124/73 04/02/25 11:40 Pulse Ox 96 04/02/25 11:40 O2 Del Method Room Air 04/02/25 11:40 O2 Flow Rate 10 04/01/25 10:51 Discharge Plan Discharge Patient Disposition: Home Condition: Stable Prescriptions: New hydrocodone-acetaminophen 5-325 mg Tablet 1 tab PO Q6H PRN (Reason: Moderate Pain) Qty: 20 0RF amoxicillin-pot clavulanate [Augmentin] 500-125 mg tablet 1 tab PO Q12H 10 Days Qty: 20 0RF Continued hydrochlorothiazide 25 mg tablet 25 mg PO DAILY rosuvastatin 20 mg tablet 20 mg PO DAILY propranolol 10 mg tablet 10 mg PO BID Qty: 180 3RF buspirone 10 mg tablet 30 mg PO BID sertraline 100 mg tablet 100 mg PO DAILY losartan 25 mg tablet 25 mg PO DAILY Zepbound 7.5 mg/0.5 mL pen injector 7.5 mg SUBCUT Q7D Referrals: Lexii Agustin, [employer]ARM EQUIPMENT ENGINEER [Primary Care Provider, Nurse Practitioner] Discharge Diet: Regular Patient Instructions: Acute Wound Care (DC), Abdominal Pain (ED), Opioid Safety, Post Anesthesia Care, Patient Portal & Estephania Instructions Discharge Attestations Time Spent in Discharge Care*: less than 30 min Quality Metrics Clinical Quality Measures [ No reported AMI, CVA or VTE this stay] Coding Level of Care Code Acute Code for Chg Fwd Diagnoses Acute appendicitis with generalized peritonitis K35.209 History of incisional hernia repair Z98.890; Z87.19 Smoking F17.200 Primary hypertension I10 Hypertension type: primary hypertension
--- NOTE | 2025-04-02 14:11 | PC.NURSE ---
pt has amox. listed as allergy, pt stated, it gives me n/v/d. this nurse contacted dr. henriquez, he wanted pt to still take. educ. pt that benefits outweighed the side effects of the n/v/d. pt verbalized understanding.
== END 2025-04-02 14:15 | disposition home or self-care (01) | DRG 233 ==
LOC: ER 21:26 → MEDSURG 21:43
PROVIDERS: Admitting Provider Surgery; Emergency Provider Student in an Organized Health Care Education/Training Program; PCP Nurse Practitioner Family; Visit Provider Surgery
PROC: 0DTJ4ZZ Resection of Appendix, Percutaneous Endoscopic Approach (ICD-10-PCS; CPT 44970; principal; 2025-04-01 08:30)
DX: K35.33 Acute appendicitis with perforation, localized peritonitis, and gangrene, with abscess (principal); F17.200 Nicotine dependence, unspecified, uncomplicated; I10 Essential (primary) hypertension
CPT/HCPCS: 36415; 36416; 51702; 74177; 80048; 80053; 81001; 82962; 83605; 83690; 83735; 84100; 85025; 86141; 88304; 93005; 96365; 96372; 96375; 99285; A4216; A7003; J0690; J1171; J1650; J1885; J2250; J2270; J2405; J2543; J2704; J2765; J3010; J3490; J7030; J7120; J7121; J9999